=== PATIENT | female | born 1990 | race Caucasian/White ===

== ENCOUNTER → 2021-11-09 10:12 | Outpatient (CLI) | payer OTHER, SELFPAY ==
[2021-11-12 20:57] LABS: AFP, Serum 27.4 ng/mL (.); Calc Gestational Age Ultrasound (.); Estriol, Free 1.11 ng/mL (.); Inhibin A, Dimeric 326.16 pg/mL (.); Maternal Ethnicity Other (.); Maternal Weight 195 lbs (.); Number of Fetuses No (.); OSBR Risk 1 IN 10000 (.); Results Report (.); Test Results *Screen Positive* (.); hCG, MoM 1.73 (.); hCG, Serum 52243 mIU/mL (.)
== END ==
PROVIDERS: Referring Provider Obstetrics & Gynecology; Visit Provider Obstetrics & Gynecology
DX: Z34.82 Encounter for supervision of other normal pregnancy, second trimester (principal); Z3A.16 16 weeks gestation of pregnancy
CPT/HCPCS: 36415; 82105; 82677; 84702; 86336

== ENCOUNTER → 2021-12-12 13:14 | Outpatient (CLI) | payer OTHER, SELFPAY ==
--- NOTE | 2021-12-12 13:16 | DI.US.S_ITS ---
PROCEDURE: US OB >= 14 WEEKS FETUS INDICATIONS: ANATOMY SCAN OUTSIDE/PRIOR DATING DATA: Last menstrual period (LMP): 07/18/2021 LMP-based estimated date of delivery (NATALIA): 04/24/2022 The calculations are made using the clinical NATALIA of 04/24/2022 TECHNIQUE: Real-time scanning was performed of the fetus, with image documentation and biometric measurements. Endovaginal scanning: Not performed. COMPARISON: [facility], US, US OB <= 14 WEEKS FETUS, 11/09/2021, 10:03. FINDINGS: General: A single living intrauterine gestation is present. Presentation: Transverse Placenta: Placental position is anterior, without previa. Amniotic fluid index: 13.5 cm, normal range is 5-24 cm. Single deepest vertical pocket is 3.8 cm. heart rate: 153 beats per minute. Maternal cervical canal: 4.2 cm long. Normal lower limit is 2.5 cm. biometrics: Biparietal diameter: 5.3 cm, 22 weeks 1 day Head circumference: 19.7 cm, 21 weeks 6 days Abdominal circumference: 17.2 cm, 21 weeks 1 day Femur length: 3.5 cm, 21 weeks 0 days Clinically estimated gestational age: 21 weeks 0 days Composite gestational age from present scan: 21 weeks 6 days Estimated weight and percentile: 444 g, 81st percentile Anatomic survey: Neuro: Ventricles are non-dilated at less than 10 mm. Cisterna magna is normal at 3-11 mm. Cerebellum is normal in size and morphology. Nuchal skin fold: Normal at less than 6 mm between 14-21 weeks gestational age. Face: Nose and lips, facial profile are normal. Spine: No evidence for spina bifida. Heart: 4-chambered heart is present, with normal ventricular outflow tracts. Diaphragm: Diaphragm is intact. Stomach: Left-sided stomach is present. Kidneys: No hydronephrosis. Normal is less than 5 mm in 2nd trimester, less than 7 mm in 3rd trimester. Cord: 3-vessel cord has orthotopic insertion. Bladder: Normal in size. Extremities: All 4 extremities identified. IMPRESSION: 1. Single live intrauterine . Estimated weight is 444 g, 81st percentile for gestational age based on clinical dates. 2. Normal anatomic survey. We strive to produce accurate, complete, and clear reports of imaging services. To assist us in improving patient care, this report was composed using standard report templates and voice recognition software. Therefore, it may contain abnormal punctuation, insertions and/or omissions. Occasional wrong-word or sound-alike substitutions may occur. Though we review the report and make efforts to correct it, we do recommend that the report be read carefully in proper context to recognize any text inaccuracies. Dictated by: Zafar Cooper M.D. on 12/12/2021 at 15:07 Approved by: Zafar Cooper M.D. on 12/12/2021 at 15:14
== END ==
PROVIDERS: Referring Provider Obstetrics & Gynecology; Visit Provider Obstetrics & Gynecology
DX: Z34.82 Encounter for supervision of other normal pregnancy, second trimester (principal); Z3A.21 21 weeks gestation of pregnancy
CPT/HCPCS: 76811

== ENCOUNTER → 2022-01-18 09:34 | Outpatient (CLI) | payer OTHER, SELFPAY ==
[2022-01-18 11:35] LABS: Hematocrit 34.8 % (36-46); Hemoglobin 11.7 g/dL (12.0-16.0)
[2022-01-18 12:57] LABS: GTT (PREG) 1 Hour PP 50gm Dose 212 mg/dL (76-139)
[2022-01-19 07:09] LABS: Varicella IgG Antibody 1039 index (Immune >165)
[2022-01-19 16:03] LABS: Hep C Virus Ab w/Reflex Quant NEGATIVE s/c (NEGATIVE)
== END ==
PROVIDERS: Referring Provider Obstetrics & Gynecology; Visit Provider Obstetrics & Gynecology
DX: Z34.82 Encounter for supervision of other normal pregnancy, second trimester (principal); Z3A.26 26 weeks gestation of pregnancy
CPT/HCPCS: 82950; 85014; 85018; 86787; 86803

== ENCOUNTER → 2022-02-01 09:10 | Outpatient (CLI) | payer OTHER, SELFPAY ==
--- NOTE | 2022-02-02 17:46 | DIAB.GDA ---
Addendum entered by Lynn Roth 02/24/22 14:07: 02/24/22: Dottie could not meet virtually or in-person today. Completed a phone check-in. Managing BG well. <90 FBG and most after meal reading in range (eating out is a challenge). Denies any questions. Plans to attend virtual Dm ed meeting in 2.5 weeks to discuss dm risk reduction ed. Enc her to call or message prn. Original Note: Initial Gestational Diabetes Assessment Name: Dottie Groves Date: 02/01/22 Time: 9 Dx: Gestational Diabetes Provider: Era NATALIA: 04/21/22 Weeks: 28 Dottie presents for virtual visit using [employer] platform regarding GDM diagnosis. Reports FH of DM with both grandmothers, mother with prediabetes. States she is trying to eat more veggies. Avoiding sweets. Some meals still high in carbs at lunch or dinner (>60g). Endorses chewing on ice all day long, iron anemia? slightly low Hgb and Hct Diet Recall: 0a: Eggs and fruit x 1/2c 11a-1p: uncrustables sandwich x 1 + small bag of chips Sn: cheese ; pretzels x 1-2 oz 5-6p: orange chicken and rice ; flatbread mozzarella pizza ; burger Sn: handful goldfish (cut out now) ; now nothing Beverages: water x 30oz x 5-6 ; Americanos with cream and white mocha (stopped with diagnosis) Sees Era next Sunday Anthropometrics: Height: 5?6? Prepre# Weight: 209# last OB visit 01/03/22 Physical Activity: walking while on vacation, tries to take breaks. Prior to vacation, was walking on good weather days for 1.5 mi (about 4-5 x per week) No activity August to November due to nausea. Prior to this was running 2-4 mi per week during the fall previous to . Self-Monitoring Blood Glucose: Consistently elevated FBG. Able to manage most other readings with diet. May benefit from medication management if provider agrees. Encouraged her to report BG to OB. Date Pre Post Pre Post Pre Post notes 01/25 149 136 01/26 105 80 113 120 01/27 96 96 105 112 01/28 100 89 123 01/29 104 84 125 80 01/30 89 109 86 01/31 94 02/01 97 Diabetes Medications: None Pertinent Labs: glucose screen: 212 mg/dL H Nutrition Rx: Carbohydrates: Meal: 45-g lunch and dinner; 30g breakfast Snack: 15-30g Nutrition Diagnosis: Altered nutrition related lab value r/t GDM dx aeb recent OGTT Nutrition and food related knowledge deficit r/t new dx of GDM aeb glucose screen, pt report of limited carb counting knowledge Intervention: This participant was very receptive. Provided appropriate educational handouts. Discussed the following topics: GDM pathophysiology and impact of hyperglycemia on mom and baby Risk for T2DM for mom and baby in the future Ways to reduce risk T2DM Plate Method, meal timing, carb counting, pairing macronutrients and spreading out CHO for better BG management Blood glucose goals (FBG: <95 and 2 hour <120 mg/dL); importance of checking 4x per day (FBG and pc) Impact of macronutrients on blood glucose Recommended servings for carbohydrates at meals and snacks Brainstormed appropriate meal plan based on her food preferences Role of physical activity and following provider guidelines for safety Goals: Pair carbs with protein Add vegetables to lunch and dinner walk 30 min daily safely Follow-up: EUNICE BURNS follow-up in one week Lynn Roth RDN, GRANT Certified Diabetes Care and Assistant Product Manager T: [phone] F: [phone] [email or web address] Thank you for this referral
== END ==
PROVIDERS: Referring Provider Obstetrics & Gynecology; Visit Provider Obstetrics & Gynecology
DX: O24.419 Gestational diabetes mellitus in pregnancy, unspecified control (principal); Z3A.28 28 weeks gestation of pregnancy
CPT/HCPCS: G0108

== ENCOUNTER → 2022-03-15 07:53 | Outpatient (CLI) | payer OTHER, SELFPAY ==
--- NOTE | 2022-03-21 10:39 | DIAB.GDFU ---
Follow-up Gestational Diabetes Assessment Name: Dottie Groves Date: 03/15/22 Time: 1035-1110a Dx: Gestational Diabetes Provider: Era NATALIA: 04/21/22 Weeks: 34-35 Dottie presents for last GDM visit today via [employer] platform. Still chewing on ice BP doing well BG going well, which she things FBG have improved from sleeping much better and not eating candy. Reduced appetite. Nothing sounds satisfying. Reports success with last baby. Plans to breastfeed this baby. Utilized support with last child. Diet Recall: a: [place]er muffins, egg and ham ; 2-3 pancakes PB and syrup Sn: nuts or banana or pro bar 12p: PBJ ; Nutella on bread ; more snack like +/- veggies ; ronny marilyn sandwich ? no chips Sn: yogurt or cheese stick with crackers or cheese with pistachios Dinner time variable: 2 tacos with lower carb tortillas (14g CHO), avocado, tomato ;usually gets some carb at dinner. Sn: nothing or crackers or nuts or nut bar Beverages: water, coffee (white elis Americano with cream checked bg after <120). Anthropometrics: Height: 5?6? Prepre# Weight: 210# last OB visit 03/03/22 Feels her weight has been more steady since lifetyle changes. Physical Activity:Walking 30-90 min per day. Self-Monitoring Blood Glucose: 75-90 usually FBG. Some elevations postprandially with higher carb intake. Date Pre Post Pre Post Pre Post 02/24 95 105 02/22 91 123 03/01 93 03/08 03/09 03/10 90 112 03/11 86 157 burgers 03/12 89 8/ 77 122 8/03/15 79 Diabetes Medications: None Pertinent Labs: glucose screen: 212 mg/dL H Nutrition Rx: Carbohydrates: Meal: 45-g lunch and dinner; 30g breakfast Snack: 15-30g Nutrition Diagnosis: Altered nutrition related lab value r/t GDM dx aeb recent OGTT Nutrition and food related knowledge deficit r/t new dx of GDM aeb glucose screen, pt report of limited carb counting knowledge- improved Intervention: This participant was very receptive. Provided appropriate educational handouts. Discussed the following topics: Recent blood sugar results and impact of food and hormones Review of macronutrient recommendations during Benefits, resources, and nutrition for recommendations for nutrition and physical activity recommendations for T2DM risk reduction OGTT at 6-12 weeks Checking blood sugars twice per week (goal: fasting <100 mg/dL and 2 hour pc <140 mg/dL) until 6 week check-up HgA1c q 1-3 years. Goals: Pair carbs with protein- met Add vegetables to lunch and dinner- met walk 30 min daily safely - met Continue to watch carbs at dinner- new Get OGTT - new Get HgA1c q 1-3 years- new Follow-up: EUNICE BURNS follow-up prn Lynn Roth RDN, GRANT Certified Diabetes Care and Zookeeper T: [phone] F: [phone] [email or web address] Thank you for this referral
== END ==
PROVIDERS: Referring Provider Obstetrics & Gynecology; Visit Provider Obstetrics & Gynecology
DX: O24.419 Gestational diabetes mellitus in pregnancy, unspecified control (principal); Z3A.34 34 weeks gestation of pregnancy
CPT/HCPCS: 97803

== ENCOUNTER → 2022-03-27 15:48 | Outpatient (CLI) | payer OTHER, SELFPAY ==
[2022-03-28 13:52] LABS: Strep Grp B PCR NEG for Grp B Strep
== END ==
PROVIDERS: Visit Provider Specialist
DX: Z34.83 Encounter for supervision of other normal pregnancy, third trimester (principal); Z3A.36 36 weeks gestation of pregnancy
CPT/HCPCS: 87653

== ENCOUNTER 2022-04-03 15:47 | Outpatient (CLI) | payer OTHER, SELFPAY ==
[2022-04-03 16:34] LABS: Add Manual Diff / Slide Review NO; Basophils Absolute Auto 0 /uL (0-100); Basophils Percent Auto 0.5 % (0-2); Eosinophils Absolute Auto 100 /uL (0-450); Eosinophils Percent Auto 0.7 % (2-4); Hematocrit 32.7 % (36-46); Hemoglobin 10.8 g/dL (12.0-16.0); Lymphocytes Absolute Auto 1200 /uL (1100-4500); Lymphocytes Percent Auto 15.6 % (25-40); Mean Corpuscular HGB Conc 33.2 % (30-36); Mean Corpuscular Hemoglobin 24.8 PG (26-34); Mean Corpuscular Volume 74.7 fL (80-100); Monocytes Absolute Auto 700 /uL (0-900); Monocytes Percent Auto 9.5 % (3-14); Neutrophils Absolute Auto 5500 /uL (1500-7000); Neutrophils Percent Auto 73.7 % (50-75); Platelet Count 251 X10^3/uL (150-400); Red Blood Cell Count 4.38 X10^6/uL (4.0-5.2); Red Cell Distribution Width 15.3 % (11.6-14.8); White Blood Cell Count 7.5 X10^3/uL (4.5-11.0)
[2022-04-03 16:39] LABS: Aspartate Aminotransferase 19 IU/L (14-36); BUN Creatinine Ratio 11.1 (6-22); Blood Urea Nitrogen 7 mg/dL (7-17); Estimated Glomerular Filt Rate > 60 mL/min (>60); Uric Acid 4.7 mg/dL (2.5-6.2)
[2022-04-03 17:34] LABS: Creatinine Urine Random 34.5 mg/dL; Protein (Total) Urine Random 12 mg/dL (0-12); Protein Creatinine Ratio Urine 0.34 GRAM/24H
== END 2022-04-03 17:04 | disposition home or self-care (01) ==
LOC: OB 04-06 07:22
PROVIDERS: Referring Provider Obstetrics & Gynecology; Visit Provider Obstetrics & Gynecology
DX: O47.1 False labor at or after 37 completed weeks of gestation (principal); O24.419 Gestational diabetes mellitus in pregnancy, unspecified control; O13.3 Gestational [pregnancy-induced] hypertension without significant proteinuria, third trimester; Z3A.37 37 weeks gestation of pregnancy
CPT/HCPCS: 59025; 82570; 84156; 84450; 84550; 85025; G0378; G0379

== ENCOUNTER 2022-04-11 07:12 | Inpatient (IN) | payer OTHER, SELFPAY ==
--- NOTE | 2022-04-11 07:57 | PM.OBHP.IH.1 ---
OB HPI Date/Time Date of admission: 04/11/22 Date Patient Seen: 04/11/22 Time Patient Seen: 07:57 History of Present Condition Chief complaint: INDUCTION NATALIA Calculator Estimated Delivery Date Method Current WG Current Estimate 04/21/22 LMP (Certain) 38w 4d Estimated Gestational Age (weeks): 39 : 4 Para: 1 care: good care, initiated at week #, number of visits and pounds weight gain Dating criteria OB: LMP confirmed by 1st trimester US Ultrasounds: normal 1st trimester US and normal mid trimester US Obstetrical complications: gestational hypertension Medical complications OB: none Indications Indication for induction OB: gestational HTN/pre-eclampsia (On labetalol) and gestational diabetes (Diet controlled) Preadmission Labs Last OB Lab Results: Hematocrit 32.7 % (36-46) L 04/03/22 16:18 Hemoglobin 10.8 g/dL (12.0-16.0) L 04/03/22 16:18 Hepatitis C Antibody Negative s/c (NEGATIVE) 01/18/22 09:42 Varicella-Zoster IgG Antibody 1039 index (Immune >165) 01/18/22 09:42 Glucose 1 Hour 212 mg/dL (76-139) H 01/18/22 09:42 Group B Streptococcus (PCR) Neg for grp b strep 03/27/22 15:48 Genetic Screens: Quad screen: Abnormal (MFM, normal male) Prior (ies) Past Pregnancies Del. Date GA/Weeks Labor Lgth Wt Sex Route Outcome Anesthesia Place Delv Breastfeed Preg Comp Name 05/13/14 8 spontaneous 09/16/14 9 spontaneous 03/17/16 37 6 7 lb 2 oz Male vaginal live - epidural [facility] 6 months labor induced hyper- Nancie Delivery Date: 05/13/14 Last Updated by: Parvin Berrios R.N. found out at 12 weeks, D & C, retained products, treated with meds Delivery Date: 09/16/14 Last Updated by: Parvin Berrios R.N. Found out at 12 wks, D & C Delivery Date: 03/17/16 Last Updated by: Parvin Berrios R.N. difficult epidural - never took Evaluation Evaluation Baseline heart rate: 135 Variability: Moderate (11-25) monitor accelerations: Present Monitor Decelerations: Absent Dilation (cm): 3 Effacement (%): 80 station: -1 Position of cervix: mid Consistency: soft [facility] Medical History Acne Back problem Chicken pox Hemorrhoid Spontaneous UTI (urinary tract infection) Surgical History Anesthesia History of appendectomy History of dilation and curettage History of tonsillectomy Family History Mother Hypertension Grandmother Diabetes mellitus Father Hypertension Grandmother Diabetes mellitus Social History marital status: number of children: 1 household members: spouse and children lives independently: Yes housing: house pets and animals: No education level: vocational occupational status: employed current occupational exposures/hazards: No special chris needs: No seatbelt use: always water heater temp set < 120 deg: Yes (will check) working smoke detector in home: Yes fire extinguisher in home: Yes carbon monox detector in home: Yes firearms in home: Yes firearms unloaded and locked: Yes do you feel safe at home: Yes Smoking Status: Never smoker second hand exposure: No alcohol intake: former substance use type: does not use during the past year weight has: increased > 10 lbs well-balanced diet: daily or most days daily servings fruits/ve-4 caffeine: Yes (200mg per day) Type(s) of exercise: walking Meds Home Medications and Allergies Home Medications Medication Instructions Recorded Confirmed Type prenat.vits,александр,tyi-amjp-[id number] 1 tab PO DAILY 11/02/21 03/27/22 History blood sugar diagnostic (Blood #120 ea 01/23/22 03/27/22 Rx Glucose Test strips) blood-glucose meter (Blood Glucose #1 ea 01/23/22 03/27/22 Rx Monitoring kit) lancets #120 ea 01/23/22 03/27/22 Rx Allergies Allergy/AdvReac Type Severity Reaction Status Date / Time Sulfa (Sulfonamide Allergy Mild headaches Verified 03/27/22 15:16 Antibiotics) OB Exam Narrative Exam Narrative: Generally: Patient is sitting up in bed, no acute distress Lungs: Clear to auscultation bilaterally Cardiovascular: Regular rate and rhythm Fundal height: 38 cm Estimated weight: 7 lb Extremities: 1+ edema, no clonus, 1+ DTRs Assessment and Plan Assessment and Plan Assessment and Plan narrative: Assessment: 32-year-old 4 para 1 at an estimated gestational age of 39 weeks gestation for induction of labor due to gestational hypertension Gestational diabetes, diet controlled Plan: Pitocin per protocol 1 Epidural as necessary Expected management to spontaneous vaginal delivery Time Spent with Patient Total time spent with greater than 50% in coordination of care (as documented) at patient's floor/unit and/or counseling patient:: 15-24 minutes
[2022-04-11 08:22] LABS: Add Manual Diff / Slide Review NO; Basophils Absolute Auto 0 /uL (0-100); Basophils Percent Auto 0.5 % (0-2); Eosinophils Absolute Auto 100 /uL (0-450); Eosinophils Percent Auto 0.7 % (2-4); Hematocrit 33.9 % (36-46); Hemoglobin 10.9 g/dL (12.0-16.0); Lymphocytes Absolute Auto 1400 /uL (1100-4500); Lymphocytes Percent Auto 16.4 % (25-40); Mean Corpuscular HGB Conc 32.2 % (30-36); Mean Corpuscular Hemoglobin 24.1 PG (26-34); Mean Corpuscular Volume 74.8 fL (80-100); Monocytes Absolute Auto 800 /uL (0-900); Monocytes Percent Auto 8.7 % (3-14); Neutrophils Absolute Auto 6400 /uL (1500-7000); Neutrophils Percent Auto 73.7 % (50-75); Platelet Count 259 X10^3/uL (150-400); Red Blood Cell Count 4.53 X10^6/uL (4.0-5.2); Red Cell Distribution Width 15.7 % (11.6-14.8); White Blood Cell Count 8.7 X10^3/uL (4.5-11.0)
[2022-04-11] MEDS: OXYTOCIN PREMIX 30 UNIT/500 ML PLAST..BAG IV (08:38)
[2022-04-11] MEDS: LACTATED RINGERS 1,000 ML 100 ML IV (08:38)
[2022-04-11 10:20] LABS: COVID19 -Nasal RAPID Negative (Negative)
--- NOTE | 2022-04-11 12:38 | PM.OBPNLAB ---
Date/Time Date Patient Seen: 04/11/22 Time Patient Seen: 12:38 Pain Control Pain control: tolerating well Pelvic Exam Dilation (cm): 4 station: 0 Amniotic membrane status: Intact Contractions Monitor mode: External Pitocin rate (mU/min): 9 Contraction frequency (min): 3 Contraction duration (min): 1 Contraction pattern: Regular Status status: Category l Heart Rate Baseline: 135 Monitor Accelerations: Present Monitor Decelerations: Absent Monitor Variability: Moderate Assessment and Plan Assessment: induction ongoing Comments: AROM with copious clear amniotic fluid
[2022-04-11] MEDS: ACETAMINOPHEN 325 MG TABLET 650 MG PO (17:43)
[2022-04-11] MEDS: IBUPROFEN 600 MG TABLET PO (17:44)
[2022-04-11] MEDS: DERMOPLAST SPRAY 20% 60 ML 1 SPRAY TOP (17:45)
--- NOTE | 2022-04-11 17:52 | P.PCNOB_ITS ---
Events: Labor Induction Labor & Delivery Delivery date: 04/11/22 Intrapartal Events: Precipitous Labor < 3 hours Cervical ripening method: none Induction method: per pitocin protocol Delivery augmentation: rupture of membranes Delivery monitor: external FHT and external uterine Route of delivery: Episiotomy description: None L&D Laceration Description: Perineal - 2nd Degree and Vaginal - 2nd Degree Estimated blood loss (mL): 100 Anesthesia Type: None Complications: None Narrative: Patient complete and pushed for 20 minutes. At 2:41 p.m., a live male delivered spontaneously in the MARCE presentation, over an intact perineum. The remainder of the body delivered quickly and the infant was placed on mom's abdomen. After the cord stopped pulsing, the cord was double clamped and cut. Cord bloods were obtained. The placenta delivered intact with a three-vessel cord at 2:48 p.m.. Pitocin was given in the IV fluids, but the IV came out and so 10 units of Pitocin were given IM. Fundus was massaged to firm. A second- degree vaginal/perineal laceration was repaired in the usual fashion using 2-0 Vicryl and 2-0 chromic. Apgars 9 at 1 minute and 9 at 5 minutes. weight 8 lb 3 oz. Local analgesia only. . Mom and stable to recovery. Baby 1: Infant gender: Male Presentation: vertex Position: Left Occiput Anterior Placenta delivery description: Spontaneous Cord Vessel Description: 3 Vessels and Clamped/Cut (After the cord stopped pulsing) score (1 min): 9 score (5 min): 9 weight: 8 lb 3 oz Plan for aftercare: Routine care
[2022-04-12] MEDS: IBUPROFEN 600 MG TABLET PO (02:02)
[2022-04-12 06:39] LABS: Hematocrit 31.2 % (36-46); Hemoglobin 10.2 g/dL (12.0-16.0)
[2022-04-12] MEDS: HC/PRAMOXINE 10GM FOAM 1 APPLIC PR (12:39)
--- NOTE | 2022-04-12 13:27 | PM.OBDS.1 ---
Discharge Providers Provider Date of admission: 04/11/22 07:12 Discharge Date: 04/12/22 Primary care physician: Doctor Isiah MD Consults: 04/12/22 15:15 Consult to Pipe Fitter Maintenance Routine Comment: Discharge provider: Angy Girard MD Summary Hospital Course Date Patient Seen: 04/12/22 Time Patient Seen: 10:30 Diagnoses: Estimated gestational age of 39 weeks Induction of labor with Pitocin Artificial rupture of membranes Chronic hypertension Spontaneous vaginal delivery Second-degree vaginal/perineal laceration and repair Hospital Course: Patient is a 32-year-old 2 para 2 who presented on 04/11/22 for a scheduled Pitocin induction of labor due to hypertension. She was started on Pitocin. Artificial rupture membranes was performed at approximately 1:00 p.m.. She had a rapid active labor and progressed to complete dilation. After 20 minutes of pushing she had a spontaneous vaginal delivery without any analgesia. She had a second-degree vaginal/perineal laceration which was repaired. course was unremarkable. She is discharged home on day # 1. Peripartum Data Delivery Method: Natural Vaginal Laceration Description: Perineal - 2nd Degree and Vaginal - 2nd Degree Episiotomy description: None Procedures: Pitocin induction of labor Artificial rupture of membrane Spontaneous vaginal delivery Second-degree vaginal/perineal laceration repair complications: none [place] 1: Gender: Male Disposition of : home Status at Discharge Cognitive/behavioral status at discharge: oriented Functional status at discharge: independent ambulation Overall status at discharge: patient is progressing back to baseline Time Spent with Patient Time attestation: Total time spent providing and/or coordinating discharge services: Time spent: Less than 30 minutes Objective Labs Result Diagrams: 04/12/22 06:19 Labs: Laboratory Results - last 24 hr 04/12/22 06:19 Hgb 10.2 L Hct 31.2 L Exam Narrative Exam Narrative: Generally: Patient walking around in room, no acute distress Fundus: Firm at U -1 Extremities: 1+ edema, negative Homans Discharge Plan Discharge Plan Patient Disposition: Home Provider Discharge Comment: Call with fever, chills, or bleeding vaginally more than a pad in an hour Ibuprofen 600mg every 6 hours as needed for cramping Tylenol 650mg every 6 hours as needed Anusol HC twice to four times a day as needed for hemorrhoids Discharge orders & Medications Prescriptions: New hydrocortisone [Anusol-HC] 2.5 % cream with perineal applicator 1 applic VA BID-QID PRN (Reason: hemorrhoids) Qty: 30 2RF Continued prenat.vits,александр,[id number]-tnovu Tablet 1 tab PO DAILY No Action (DME) blood-glucose meter [Blood Glucose Monitoring] Kit See Rx Instructions .ROUTE .MEDSUPPLY Qty: 1 0RF Rx Instructions: To use with testing fasting and 2 hr PP blood sugars (DME) Blood Glucose Test Strip See Rx Instructions .ROUTE .MEDSUPPLY Qty: 120 3RF Rx Instructions: Testing blood sugars fasting and 2 hr PP (DME) lancets Misc See Rx Instructions .ROUTE .MEDSUPPLY Qty: 120 3RF Rx Instructions: Testing blood sugars fasting and 2 hr PP Follow up/Referrals: Josette Steen PA-C [[facility] [employer]] - (Your six week follow up appointment is scheduled with Dr. Girard's PA Josette Steen on May 25 @10:30am.) Diet/Activity/Treatments Diet: Regular Activity: Nothing in the vagina for 6 weeks Skin/Wound/Dressing Care Report to your healthcare provider any signs of infection, such as:: chills, fever, increased pain and unusual drainage Visit Report/Discharge Packet Instructions: DI for Labor and Delivery, Vaginal Stand Alone Forms: Discharge: Care Discharge Data Primary Care Provider: Miscellaneous,Doctor
== END 2022-04-12 21:25 | disposition home or self-care (01) | DRG 807 ==
PROVIDERS: Admitting Provider Obstetrics & Gynecology; Referring Provider Obstetrics & Gynecology; Visit Provider Obstetrics & Gynecology
DX: O13.4 Gestational [pregnancy-induced] hypertension without significant proteinuria, complicating childbirth (principal); Z37.0 Single live birth; Z3A.39 39 weeks gestation of pregnancy; O24.420 Gestational diabetes mellitus in childbirth, diet controlled; O70.1 Second degree perineal laceration during delivery
CPT/HCPCS: 36415; 59050; 59400; 85014; 85018; 85025; 86850; 86900; 86901; 87635; C9803; G0379; J2590

== ENCOUNTER → 2022-05-09 11:57 | Outpatient (CLI) | payer OTHER, SELFPAY ==
[2022-05-09 12:43] LABS: Appearance Urine UA CLEAR; Bilirubin Urine UA NEGATIVE (NEGATIVE); Color Urine UA YELLOW; Glucose Urine UA NEGATIVE (Negative); Ketones Urine UA NEGATIVE (NEGATIVE); Leukocyte Esterase Urine UA TRACE (NEGATIVE); Nitrite Urine UA NEGATIVE (Negative); Occult Blood Urine UA 3+ (Negative); Protein Urine UA NEGATIVE (Negative); Specific Gravity Urine UA <=1.005 (1.000-1.035); Urobilinogen Urine UA 0.2 E.U./dL (0.2)
[2022-05-09 12:53] LABS: Bacteria Urine Occasional (0-1); Culture Indicated Urine Specimen Cultured; RBC Urine 5-10/HPF (0-5/HPF); Squamous Epithelial Cell Urine 0-1 /HPF (0-5/HPF); WBC Urine 1-5/HPF (0-5/HPF); pH Urine UA 6.5 (4.5-8.0)
== END ==
PROVIDERS: Referring Provider Obstetrics & Gynecology; Visit Provider Obstetrics & Gynecology
DX: N39.0 Urinary tract infection, site not specified (principal)
CPT/HCPCS: 81001; 87086

== ENCOUNTER → 2022-05-25 11:05 | Outpatient (CLI) | payer OTHER, SELFPAY ==
[2022-05-26 16:07] LABS: Candida species Negative (Negative); Gardnerella vaginalis Negative (Negative); Trichomoas vaginalis Negative (Negative)
== END ==
PROVIDERS: Visit Provider Physician Assistant Medical
DX: N94.9 Unspecified condition associated with female genital organs and menstrual cycle (principal)
CPT/HCPCS: 87480; 87510; 87660

== ENCOUNTER → 2022-11-03 10:07 | Outpatient (CLI) | payer OTHER, SELFPAY ==
[2022-11-03 11:59] LABS: Glucose Fasting 79 mg/dL (70-100)
[2022-11-03 12:31] LABS: Glucose Tol Interpretation INTERPRETATION
[2022-11-03 13:31] LABS: Glucose 1 Hour 164 mg/dL (70-170)
[2022-11-03 13:43] LABS: Glucose 2 Hour 138 mg/dL (70-140)
== END ==
PROVIDERS: PCP Physician Assistant; Referring Provider Obstetrics & Gynecology; Visit Provider Obstetrics & Gynecology
DX: O24.410 Gestational diabetes mellitus in pregnancy, diet controlled (principal); Z3A.00 Weeks of gestation of pregnancy not specified
CPT/HCPCS: 36415; 82951; 82952